=== PATIENT | male | born 1985 | race Caucasian/White ===

== ENCOUNTER 2022-08-03 04:31 | Emergency (ER) | payer OTHER, SELFPAY ==
[2022-08-03 04:39] VITALS: BP 129/65; PULSE 72; RESP 18; TEMP 36.3; O2SAT 99
[2022-08-03] MEDS: SODIUM CHLORIDE 0.9% IV 1,000 ML 999 ML IV CONT (05:11)
--- NOTE | 2022-08-03 05:42 | ED.GENADULT ---
HPI - General Adult General Chief complaint: Unspecified Stated complaint: not sleeping, dehydrated Time Seen by Provider: 08/03/22 04:43 History of Present Illness HPI narrative: Patient is a 36-year-old male who presents ER with concerns of insomnia. Reports he has not been able to sleep for couple days. He has been drinking beer tonight and moonshine yesterday and attempt to sleep. Denies using any stimulant type drugs. Denies trying any [id number] sleep aids. He feels like he is dehydrated and that a bag of fluid would help him with sleeping. He also reports he has been sexually active over the last 3 weeks with a new partner without protection. He would like to be evaluated for STI but has no urethral discharge/dysuria/testicular pain. Patient reports he has been on amoxicillin recently for a dental infection. Related Data Allergies Allergy/AdvReac Type Severity Reaction Status Date / Time No Known Allergies Allergy Verified 08/03/22 04:34 Review of Systems Constitutional: Constitutional: Denies chills, Reports difficulty sleeping, Reports fatigue and Denies fever(s) Cardiovascular: Cardiovascular: Denies chest pain, Denies radiating jaw, neck or arm pain and Denies palpitations Respiratory: Respiratory: Denies cough and Denies dyspnea Gastrointestinal: Gastrointestinal: Denies abdominal pain, Denies diarrhea, Denies nausea and Denies vomiting Genitourinary: Genitourinary: Denies dysuria, Denies penile discharge and Denies testicular pain Exam Narrative: GENERAL: Well-appearing, well-nourished, and in no acute distress. HEAD: Normocephalic, atraumatic. ENT: Mucous membranes moist. CHEST: Clear to auscultation. No respiratory distress. HEART: Regular rate and rhythm. Normal peripheral pulses. : Normal-appearing external genitalia without urethral discharge, no tenderness to the testicles bilaterally. No lesions to the penile shaft or scrotum. EXTREMITIES: Normal range of motion. No edema. NEURO: Alert and oriented x3. PSYCH: Normal mood and affect. Course Course Emergency Course: No known STI exposures or symptoms but requesting treatment. Will not treat at this time. Patient will follow with his results. He has been given a liter of fluid. Recommend [id number] sleep aids. Vital Signs Vital signs: Vital Signs Temperature 97.4 F L 08/03/22 04:39 Pulse Rate 72 08/03/22 04:39 Respiratory Rate 18 08/03/22 04:39 Blood Pressure 129/65 08/03/22 04:39 Pulse Oximetry 99 08/03/22 04:39 Oxygen Delivery Room Air 08/03/22 04:39 Temperature 97.4 F L 08/03/22 04:39 Pulse Rate 72 08/03/22 04:39 Respiratory Rate 18 08/03/22 04:39 Blood Pressure 129/65 08/03/22 04:39 Pulse Oximetry 99 08/03/22 04:39 Oxygen Delivery Room Air 08/03/22 04:39 Medical Decision Making Vital Signs Vital Signs: Vital Signs Temperature 97.4 F L 08/03/22 04:39 Pulse Rate 72 08/03/22 04:39 Respiratory Rate 18 08/03/22 04:39 Blood Pressure 129/65 08/03/22 04:39 Pulse Oximetry 99 08/03/22 04:39 Oxygen Delivery Room Air 08/03/22 04:39 Temperature 97.4 F L 08/03/22 04:39 Pulse Rate 72 08/03/22 04:39 Respiratory Rate 18 08/03/22 04:39 Blood Pressure 129/65 08/03/22 04:39 Pulse Oximetry 99 08/03/22 04:39 Oxygen Delivery Room Air 08/03/22 04:39 Lab Data Labs: Lab Results 08/03/22 Range/Units 05:30 C.trachomatis RNA (TMA) Pending N.gonorrhoeae RNA (TMA) Pending Discharge Plan Discharge Clinical Impression: Insomnia, Concern about STD in male without diagnosis Patient Disposition: Home, Self-Care Condition: Stable Instructions: Insomnia (ED) Additional Instructions: It is recommend you try litx-bgj-[id number] medications such as melatonin or Benadryl as a first-line sleep aid. Follow-up with your primary care doctor if you have additional issues with sleep. Return to the ER if you develop fever over 100.4 ?
== END 2022-08-03 05:59 | disposition home or self-care (01) ==
PROVIDERS: Emergency Provider Emergency Medicine
DX: G47.00 Insomnia, unspecified (principal); Z11.3 Encounter for screening for infections with a predominantly sexual mode of transmission
CPT/HCPCS: 87491; 87591; 96360; 99283; J7030

== ENCOUNTER 2024-02-12 13:28 | Emergency (ER) | payer OTHER, SELFPAY ==
--- NOTE | ~2024-02-12 | US_ITS ---
EXAMINATION: US scrotum doppler DATE: 02/12/2024 17:48 INDICATION: pain, swelling. . TECHNIQUE: Grayscale and Doppler ultrasound images of the testes were obtained. COMPARISON: None. FINDINGS: The right testis measures 4.2 x 1.8 x 2.3 cm. The left testis measures 3.9 x 2.0 x 2.8 cm. No testicular mass. There is normal vascular flow to both testes. The right epididymis is normal with normal vascular flow. The left epididymis is normal with normal vascular flow. Small left varicocele . Small left hydrocele. IMPRESSION: Small left hydrocele. Small left varicocele. Reviewed, dictated and finalized at location K.
--- NOTE | ~2024-02-12 | CT_ITS ---
EXAMINATION: CT pelvis w con DATE: 02/12/2024 17:41 INDICATION: Perineal swelling concern for abscess. TECHNIQUE: Computed tomography (CT) of the pelvis was performed with 100 mL Omnipaque 350 intravenous contrast. Automated exposure control and iterative reconstruction technique were employed. The dose- length product was 1075.58 mGy-cm. COMPARISON: None FINDINGS: No acute osseous finding. Pelvic contents within normal limits. No lymphadenopathy. Small f at-containing uncomplicated umbilical and right inguinal hernias. Tiny 1.3 cm subdermal fluid collect ion with rim enhancement in the left medial buttock. Small left hydrocele. IMPRESSION: 1.3 cm subdermal rim-enhancing fluid collection in the left medial buttock, may represent an infected /inflamed subcutaneous cyst or abscess. Reviewed, dictated and finalized at location K. IMPRESSION: 1.3 cm subdermal rim-enhancing fluid collection in the left medial buttock, may represent an infected/inflamed subcutaneous cyst or abscess.
[2024-02-12 13:37] VITALS: BP 134/69; PULSE 107; RESP 20; TEMP 37.1; O2SAT 97
[2024-02-12 15:51] VITALS: BP 126/77; PULSE 94; RESP 14; O2SAT 97
[2024-02-12 16:42] LABS: Appearance Urine Clear (Clear); Bilirubin Urine Negative (Negative); Blood Urine Negative (Negative); Color Urine Yellow (Yellow); Glucose Urine UA Negative (Negative); Ketones Urine Negative (Negative); Leukocyte Esterase Ur Negative LEU/UL (Negative); Nitrate Urine Negative (Negative); Protein Urine Negative (Negative); Specific Grav Ur 1.022 (1.001-1.035); Urobilinogen Urine 0.2 mg/dL (<2.0)
[2024-02-12 16:55] VITALS: BP 130/74; PULSE 81; RESP 15; O2SAT 97
[2024-02-12 17:01] LABS: Add Urine Microscopic? NO
--- NOTE | 2024-02-12 17:01 | ED.GENADULT ---
HPI - General Adult General Chief complaint: Wound/Laceration Stated complaint: Abcess Time Seen by Provider: 02/12/24 15:46 History of Present Illness HPI narrative: Patient is a 38-year-old male with history of recurrent perineal abscesses here with concern for perineal abscess. He states that over the last week he started noticing some swelling over his perineum. He notes it has been increasing in size and is associated with pain in his bilateral testicles as well as his urethra. He has had some dysuria over the last couple of days. He denies fever or chills. About 1 year ago he had something similar, went to [facility] emergency department, was started on IV antibiotics and the plan was for surgical intervention however by the following morning it was improving with antibiotics and never needed intervention. Related Data Allergies Allergy/AdvReac Type Severity Reaction Status Date / Time No Known Allergies Allergy Verified 02/12/24 15:53 Review of Systems Review of Systems: All systems reviewed & are unremarkable except as noted in HPI and below Exam Narrative: GENERAL: Well-appearing, well-nourished, and in no acute distress. HEAD: Normocephalic, atraumatic. EYES: PERRLA and EOMI. ENT: Nares clear. Mucous membranes moist. NECK: Supple. CHEST: Clear to auscultation. No respiratory distress. HEART: Regular rate and rhythm. Normal peripheral pulses. ABDOMEN: Soft, nontender, nondistended. : Exam performed with tech as business development analyst. He has a 1x2 cm of induration extending from the perineum into the posterior testicles. Minimal overlying erythema, no crepitus. Testicles non tender, non swollen. No penile sores or discharge present. EXTREMITIES: Normal range of motion. No edema. SKIN: Warm, dry, no rash. NEURO: No focal deficits. Alert and oriented x3. PSYCH: Normal mood and affect. Course Course Emergency Course: Chart review performed, patient here for genital abscess. Triage vitals show tachycardia, otherwise within normal limits. Patient seen evaluated, nontoxic appearing. General exam performed with tech as business development analyst. Patient has a approximately 1 x 3 cm area of induration over the perineum extending into the posterior scrotum, no crepitus, no skin changes, mild overlying erythema. Will do basic labs, lactic, CT pelvis with contrast, scrotal ultrasound, UA, urine STI testing. Patient made NPO, agreeable to workup. Lab work and imaging reviewed, my blood cell count of 9.0, electrolytes grossly normal, CRP of 1.7, UA negative for UTI, gonorrhea, chlamydia, Trichomonas all negative. CT shows small 1.3 cm fluid collection which is consistent with cyst versus abscess, discussed location of this with Dr. Virgen from Radiology confirms this is likely the site of induration on exam. I spoke with Dr. Guzman from urology. Recommends 7-10 days of antibiotics with bactrim or keflex, can follow in the clinic with them or return of symptoms worsen. The results of pertinent diagnostic studies and exam findings were discussed. The patient?s provisional diagnosis and plan of care were discussed with the patient and present family. The patient and/or present family expressed understanding of the diagnosis and plan. The nurse was instructed to provide written instructions and appropriate follow-up information. The patient understands their need and responsibility to obtain additional follow-up as instructed. The risks of medications administered and prescribed were discussed with the patient and family present. Vital Signs Vital signs: Vital Signs Temperature 98.8 F 02/12/24 13:37 Pulse Rate 107 H 02/12/24 13:37 Respiratory Rate 20 02/12/24 13:37 Blood Pressure 134/69 02/12/24 13:37 Pulse Oximetry 97 02/12/24 13:37 Oxygen Delivery Room Air 02/12/24 13:37 Temperature 98.8 F 02/12/24 13:37 Pulse Rate 81 02/12/24 16:55 Respiratory Rate 15 02/12/24 16:55 Blood Pressure 130/74 02/12/24 16:55 Pulse Oximetr
[2024-02-12 17:05] LABS: Basophils Percent Auto 0.3 % (0.2-1.2); Eosinophils Absolute Auto 0.2 K/mm3 (0-0.3); Eosinophils Percent Auto 2.4 % (0-4.4); Hematocrit 44.4 % (42.0-52.0); Immature Granulocyte Absolute 0.06 K/mm3 (0.00-0.031); Immature Granulocyte Percent A 0.7 % (0-0.5); Lymphocytes Absolute Auto 1.59 K/mm3 (0.9-3.2); Lymphocytes Percent Auto 17.6 % (18.3-44.2); Mean Corpuscular HGB Conc 33.8 g/dl (32-36); Mean Corpuscular Volume 91.7 fl (80-100); Mean Platelet Volume 9.7 fl (7.4-10.4); Monocytes Absolute Auto 0.6 K/mm3 (0.1-0.6); Monocytes Percent Auto 6.8 % (2.6-8.5); Neutrophils Absolute Auto 6.5 K/mm3 (1.3-6.7); Neutrophils Percent Auto 72.2 % (45.5-73.1); Platelet Count Result 254 k/mm3 (150-375); Red Blood Count 4.84 M/mm3 (4.6-6.20); Red Cell Distribution Width 13.5 % (11.5-14.5)
[2024-02-12 17:16] LABS: Lactic Acid Reflex 0.7 mmol/L (0.7-2.0); Partial Thromboplastin Time 27.7 Seconds (22.3-36.8); Prothrombin Time 13.4 Seconds (11.1-14.7)
[2024-02-12 17:18] LABS: Alanine Aminotransferase 40 U/L (6-50); Albumin Level 4.3 g/dL (3.5-5.1); Alkaline Phosphatase 64 U/L (38-126); Anion Gap 5 mmol/L (8-16); Aspartate Amino Transferase 32 U/L (17-59); Bilirubin,Total 0.5 mg/dL (0.2-1.3); Blood Urea Nitrogen 17 mg/dL (9-20); CRP 1.7 mg/dL (<1.0); Calcium 9.4 mg/dL (8.4-10.2); Carbon Dioxide 32 mmol/L (22-30); Chloride 104 mmol/L (98-107); Estimated CRCL calculation 101 ml/min; Estimated Glomerular Filt Rate > 60; Glucose 80 mg/dL (65-110); Potassium 3.7 mmol/L (3.4-5.0); Sodium 141 mmol/L (137-145)
[2024-02-12 18:07] LABS: Trichomonas Vag PCR NOT DETECTED (NOT DETECTE)
[2024-02-12 18:20] LABS: Chlamydia trachomatis NOT DETECTED (NOT DETECTE); Neisseria gonorrhoeae PCR NOT DETECTED (NOT DETECTE)
[2024-02-12] MEDS: SULFAMETHOXAZOLE/TRIMETHOPRIM 800/160 MG DS TABLET 1 TAB PO (18:55)
[2024-02-12 18:57] VITALS: BP 126/89; PULSE 62; RESP 14; TEMP 36.4; O2SAT 95
== END 2024-02-12 18:59 | disposition home or self-care (01) ==
PROVIDERS: Emergency Provider Student in an Organized Health Care Education/Training Program
DX: L02.215 Cutaneous abscess of perineum (principal)
CPT/HCPCS: 36415; 72193; 76870; 80053; 83605; 85025; 85610; 85730; 86140; 87491; 87591; 87661; 93976; 99284; A9270; Q9967